=== PATIENT | male | born 1965 | race Caucasian/White ===

== ENCOUNTER → 2019-06-30 | Outpatient (CLI) | payer BC ==
[~2019-06-30] MED LIST: ALLEGRA PO; ANDROGEL; Z.0.NEXIUM40 MG PO
--- NOTE | 2019-06-30 10:53 | Diagnostic Imaging Report ---
EXAM: US ABDOMEN COMPLETE DATE: 06/30/2019 10:05 AM INDICATION: Hepatic steatosis COMPARISON: Abdominal ultrasound 09/09/2014 TECHNIQUE: Transverse and longitudinal adams scale and color doppler sonographic images of the upper abdomen were obtained. FINDINGS: LIVER 14.1 cm in the right midclavicular line. Increased echogenicity of the liver with normal contour, no masses. SPLEEN 13.0 cm in maximum diameter. Normal echogenicity, no masses. GALLBLADDER No gallbladder wall thickening, distension, stone, or pericholecystic fluid. Negative reported sonographic Funes's sign. The gallbladder wall measures 2mm BILE DUCTS No intra nor extra-hepatic biliary dilation. Common bile duct measures 3mm PANCREAS: Visualized portions are normal. RIGHT KIDNEY: 12.9 cm Echogenicity: Normal Collecting System: No hydronephrosis Stones: None Cyst/Mass: None LEFT KIDNEY: 12.8 cm Echogenicity: Normal Collecting System: No hydronephrosis Stones: None Cyst/Mass: None VESSELS: Aorta: Visualized portions are within normal size limits Inferior Vena Cava: Visualized portions are normal Main Portal Vein: 1.0 cm, normal size with hepatopetal flow. FREE FLUID: None IMPRESSION: Diffuse hepatic steatosis. No focal liver lesion. Splenomegaly. Signed by: Cinthya Concepcion MD on 06/30/2019 10:51 AM
== END ==
LOC: US 10:01
PROVIDERS: ATTEND Internal Medicine Gastroenterology
DX: K76.0 Fatty (change of) liver, not elsewhere classified (principal)
CPT/HCPCS: 76700

== ENCOUNTER → 2019-07-11 | Day surgery (SDC) | payer BC ==
[~2019-07-11] MED LIST changes: +ALBUTEROL0.63 MG/3 INH; +FENTANYL CITRATE/PF 100MCG/2 ML INJ ONE; +HYOSCYAMINE 0.125 MG TAB ONE; +LIDOCAINE HCL 2% LOCAL INJ 5 ML SDV VIAL INJ ONE; +MIDAZOLAM HCL 2 MG/2 ML VIAL ONE; +PANTOPRAZOLE 40 MG 10ML VIAL ONE; +PROPOFOL IV EMULSION 10 MG/ML 50 ML VIAL ONE; +SINGULAIR10 MG PO
--- OUTSIDE RECORDS SUMMARY | 2019-07-11 08:21 | XMS REPORT ---
Author Author [facility] Address Unknown Phone Unavailable Care Team Providers Care Broadband Engineer Name Role Phone JIM ANDERSON Unavailable Unavailable Problems This patient has no known problems. Allergies, Adverse Reactions, Alerts This patient has no known allergies or adverse reactions. Medications This patient has no known medications. Results Test Description Test Time Test Comments Text Results Atomic Results Result Comments US ABDOMEN COMPLETE 2019-06-30 10:50:00 [place] [address] Patient Name: HAYDEN ANGUIANO MR #: [id number] : 1965 Age/Sex: 53/M Req #: [id number] Adm Physician: Ordered by: JIM ANDERSON MD Report #: [id number] Location: Room/Bed: Procedure: [id number] US/US ABDOMEN COMPLETE Exam Date: 06/30/19 Exam Time: 1009 REPORT STATUS: Signed EXAM: US ABDOMEN COMPLETE DATE: 06/30/2019 10:05 AM INDICATION: Hepatic steatosis COMPARISON: Abdominal ultrasound 09/09/2014 TECHNIQUE: Transverse and longitudinal adams scale and color doppler sonographic images of the upper abdomen were obtained. FINDINGS: LIVER 14.1 cm in the right midclavicular line. Increased echogenicity of the liver with normal contour, no masses. SPLEEN 13.0 cm in maximum diameter. Normal echogenicity, no masses. GALLBLADDER No gallbladder wall thickening, distension, stone, or pericholecystic fluid. Negative reported sonographic Funes's sign. The gallbladder wall measures 2mm BILE DUCTS No intra nor extra-hepatic biliary dilation. Common bile duct measures 3mm PANCREAS: Visualized portions are normal. RIGHT KIDNEY: 12.9 cm Echogenicity: Normal Collecting System: No hydronephrosis Stones: None Cyst/Mass: None LEFT KIDNEY: 12.8 cm Echogenicity: Normal Collecting System: No hydronephrosis Stones: None Cyst/Mass: None VESSELS: Aorta: Visualized portions are within normal size limits Inferior Vena Cava: Visualized portions are normal Main Portal Vein: 1.0 cm, normal size with hepatopetal flow. FREE FLUID: None IMPRESSION: Diffuse hepatic steatosis. No focal liver lesion. Splenomegaly. Signed by: Genia Bryson MD on 06/30/2019 10:51 AM Dictated By: GENIA BRYSON MD [id number] Transcribed By: GARRICK on 06/30/19 1051 COPY TO: JIM ANDERSON MD
--- NOTE | 2019-07-11 20:10 | Operative Report ---
DATE OF PROCEDURE: 07/11/2019 SURGEON: Oscar Segovia MD PROCEDURE PERFORMED: EGD with biopsies and colonoscopy. INDICATIONS FOR EGD: Dysphagia. INDICATIONS FOR COLONOSCOPY: Colorectal cancer screening, father with colon cancer, paternal grandmother with colon cancer and maternal grandfather with colon cancer. MEDICATIONS: The patient was done under MAC, please see anesthesiologist's note. PROCEDURE IN DETAIL: With the patient in left lateral decubitus position, a flexible fiberoptic Olympus gastroscope was introduced into the esophagus under direct visualization without any difficulty. There was some patchy erythema noted in distal esophagus. Also, there were some concentric rings noted, which was suspicious for eosinophilic esophagitis and the patient does have a history of eosinophilic esophagitis. There was a mild stricture noted at the GE junction and that was dilated to size 52-[place]. The scope was then advanced with ease into the stomach. Mucosa overlying the antrum and the body revealed some patchy erythema. An approximately 8 mm submucosal nodule was noted in the antrum that was biopsied and there was a minute submucosal nodule noted in the upper body along the anterior wall that was biopsied. Pylorus was of normal contour and shape was intubated with ease and the scope was advanced all the way to the second portion of the duodenum. Biopsies were obtained from the second portion and a duodenal bulb to rule out sprue. The scope was then withdrawn back into the stomach and retroflexed mucosa overlying the fundus and cardia appeared to be within normal limits. The scope was then straightened out and it was subsequently withdrawn. The patient tolerated procedure well. IMPRESSION: 1. Esophageal stricture, GE junction dilated to size 52-[place]. 2. Gastritis, mild. 3. Gastric submucosal nodule, antrum biopsied. 4. Minute submucosal nodule, upper body anterior wall, biopsied. 5. Rule out sprue. PLAN: Follow up histology. Initiate Protonix 40 mg 1 p.o. q.a.m. a.c. The patient was then turned around. After adequate lubrication of the anal canal, a flexible fiberoptic Olympus colonoscope was inserted into the rectum with ease and advanced all the way to the cecum. It was then withdrawn slowly and mucosa overlying the cecum, ascending colon, and transverse colon appeared to be within normal limits. Some diverticular disease was noted in the sigmoid colon. The rectum appeared to be within normal limits. The scope was then retroflexed into the distal rectum and small internal hemorrhoids were noted, none of which was actively bleeding. The scope was then straightened out and it was subsequently withdrawn. The patient tolerated procedure well. IMPRESSION: 1. Diverticulosis. 2. Internal hemorrhoids, none actively bleeding. PLAN: Initiate high-fiber and low-fat diet. Initiate high-fiber supplement. We will need to check the patient for Beatty syndrome. If negative, he will probably need to have a followup colonoscopy in 3 years. If positive, we will need to have a followup colonoscopy in 1 to 2 years. Oscar Segovia MD [facility] [place]/[facility] /[id number] cc: Yobani Segovia MD
== END | disposition home or self-care (01) ==
LOC: OR 07:45
PROVIDERS: ATTEND Internal Medicine Gastroenterology
DX: Z12.11 Encounter for screening for malignant neoplasm of colon (principal); Z86.010 Personal history of colon polyps; K29.50 Unspecified chronic gastritis without bleeding; K22.2 Esophageal obstruction; K31.89 Other diseases of stomach and duodenum; K22.8 Other specified diseases of esophagus; K21.9 Gastro-esophageal reflux disease without esophagitis; K57.30 Diverticulosis of large intestine without perforation or abscess without bleeding; K64.8 Other hemorrhoids; K76.0 Fatty (change of) liver, not elsewhere classified; E66.9 Obesity, unspecified; Z01.810 Encounter for preprocedural cardiovascular examination; J45.909 Unspecified asthma, uncomplicated; Z68.33 Body mass index [BMI] 33.0-33.9, adult; Z80.0 Family history of malignant neoplasm of digestive organs
CPT/HCPCS: 43239; 43450; 45378; 93005; C9113; J2001; J2250; J2704; J3010

== ENCOUNTER → 2024-08-31 | Day surgery (SDC) | payer BC ==
[~2024-08-31] MED LIST changes: +ASPIRIN81 MG PO; -FENTANYL CITRATE/PF 100MCG/2 ML INJ ONE; -HYOSCYAMINE 0.125 MG TAB ONE; -LIDOCAINE HCL 2% LOCAL INJ 5 ML SDV VIAL INJ ONE; +NEXIUM40 MG PO; +OLMESARTAN MEDOX5 MG; +ONE DAILY FOR1 EAC1; -PANTOPRAZOLE 40 MG 10ML VIAL ONE; +PANTOPRAZOLE SO40 MG PO; +PROPOFOL IV EMULSION 10 MG/ML 20 ML VIAL ONE; -PROPOFOL IV EMULSION 10 MG/ML 50 ML VIAL ONE; +PROPOFOL IV EMULSION 50 ML IV ONE
[2024-08-31] MEDS: LACTATED RINGER'S 1,000 ML ONE (13:20)
[2024-08-31 17:34] VITALS: TEMP 97.4
[2024-08-31 17:50] VITALS: BP 137/97; PULSE 77; RESP 16; O2SAT 99
== END | disposition home or self-care (01) ==
LOC: OR 12:49
PROVIDERS: ATTEND Internal Medicine Gastroenterology
DX: Z12.11 Encounter for screening for malignant neoplasm of colon (principal); D12.3 Benign neoplasm of transverse colon; K31.7 Polyp of stomach and duodenum; K29.70 Gastritis, unspecified, without bleeding; K25.9 Gastric ulcer, unspecified as acute or chronic, without hemorrhage or perforation; K31.89 Other diseases of stomach and duodenum; K20.90 Esophagitis, unspecified without bleeding; K57.30 Diverticulosis of large intestine without perforation or abscess without bleeding; K64.8 Other hemorrhoids; J45.909 Unspecified asthma, uncomplicated; Z71.89 Other specified counseling; M54.9 Dorsalgia, unspecified; M54.2 Cervicalgia; M06.9 Rheumatoid arthritis, unspecified; M19.90 Unspecified osteoarthritis, unspecified site; Z79.82 Long term (current) use of aspirin; Z79.899 Other long term (current) drug therapy; Z68.33 Body mass index [BMI] 33.0-33.9, adult; Z71.3 Dietary counseling and surveillance; Z01.810 Encounter for preprocedural cardiovascular examination; Z80.0 Family history of malignant neoplasm of digestive organs
CPT/HCPCS: 43239; 43251; 45385; 93005; J2250; J2470; J2704 ×2; J7121